=== PATIENT | female | born 2000 | race Caucasian/White ===

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

== ENCOUNTER 2024-01-01 21:09 | Emergency (ER) | payer OTHER ==
[~2024-01-01] VITALS: Ht 157.5 cm; Wt 60.5 kg
[~2024-01-01 21:09] MED LIST changes: +NAPR-337 PO; -NAPR-54 PO
[2024-01-01 21:28] VITALS: BP 134/108; PULSE 79; RESP 14; TEMP 97.7; O2SAT 99
[2024-01-01] MEDS ORDERED: SULF-59 PO (22:39)
== END 2024-01-01 22:48 | disposition home or self-care (01) ==
LOC: MED 21:09
DX: J34.0 Abscess, furuncle and carbuncle of nose (principal); R21 Rash and other nonspecific skin eruption; J45.909 Unspecified asthma, uncomplicated; Z79.899 Other long term (current) drug therapy
CPT/HCPCS: 81025; 99283